=== PATIENT | male | born 1980 | race Two or more races ===

== ENCOUNTER 2020-03-30 15:35 | Outpatient (REF) | payer MEDICAID, SELFPAY ==
--- NOTE | 2020-03-30 15:46 | XR_ITS ---
EXAMINATION: XR FOOT, LEFT CLINICAL INFORMATION: Pain in left foot COMPARISON: None TECHNIQUE: AP, lateral, and oblique views of the left foot. FINDINGS: There is no fracture or dislocation. Alignment is anatomic. Joint spaces are maintained. Achilles heel spur noted. The soft tissues are unremarkable. IMPRESSION: Achilles heel spur. Otherwise unremarkable appearance of the foot.
== END 2020-03-30 15:36 | disposition home or self-care (01) ==
LOC: HO.XRAY 15:35
PROVIDERS: PCP Internal Medicine; Visit Provider Family Medicine
DX: M79.672 Pain in left foot (principal)
CPT/HCPCS: 73630

== ENCOUNTER → 2020-05-11 09:47 | Outpatient (BNVA) | payer MEDICAID, SELFPAY | PROVIDERS: PCP Internal Medicine; Visit Provider Surgery Vascular Surgery | DX: I83.11 Varicose veins of right lower extremity with inflammation (principal) | CPT/HCPCS: 99202 ==

== ENCOUNTER 2020-05-18 10:09 | Outpatient (REF) | payer MEDICAID, SELFPAY ==
--- NOTE | 2020-05-18 10:13 | US_ITS ---
EXAMINATION: RIGHT and LEFT LOWER EXTREMITY VENOUS ULTRASOUND (Reflux Exam) CLINICAL INDICATION: Leg pain and varicose veins. COMPARISON: None. TECHNIQUE: Color flow triplex imaging and compression Doppler was performed to evaluate both the deep and the superficial systems bilaterally. To evaluate the superficial system, the examination was performed in the upright position. Color-flow Doppler ultrasound and compression ultrasound were utilized. In addition, maneuvers were utilized to demonstrate reflux. FINDINGS: 1. DEEP VENOUS ULTRASOUND OF THE RIGHT LOWER EXTREMITY: Respiratory variation, normal compression and augmented flow are noted in the right common femoral vein as well as the right popliteal vein, and there is no evidence of deep venous thrombosis at these locations. There is no evidence of reflux in the deep system in either the common femoral vein. There is deep venous reflux in the mid femoral vein measuring 2.5 seconds and popliteal vein measuring 1 second. There is no evidence of a Martínez's cyst. 2. SUPERFICIAL ULTRASOUND WITH DOPPLER OF RIGHT LOWER EXTREMITY: The right great saphenous vein at the saphenofemoral junction measures 8 mm, at the mid thigh 6 mm, fwwey-[id number] 7 mm, mzoll-vzp-cibj 5 mm, at mid calf 4 mm and at the ankle measures 4 mm. There is no reflux demonstrated in the right great saphenous vein. The right small saphenous vein measures 3-5 mm and shows no reflux. There is a varicose vein in the proximal calf that measures 3 mm and does not demonstrate reflux. 3. DEEP VENOUS ULTRASOUND OF THE LEFT LOWER EXTREMITY: Respiratory variation, normal compression, and augmented flow are noted in the left common femoral vein as well as the left popliteal vein and there is no evidence of deep venous thrombosis at these locations. There is no evidence of reflux in the deep system in either the common femoral vein or the mid femoral vein. There is deep venous reflux in the popliteal vein measuring 1.4 seconds. There is no evidence of a Martínez's cyst. 4. SUPERFICIAL ULTRASOUND WITH DOPPLER OF LEFT LOWER EXTREMITY: Left great saphenous vein at the saphenofemoral junction measures 7 mm, at the mid thigh 3 mm, esjvn-rtv-lnvs 2 mm, vmdti-jko-zhwx 2 mm, at mid calf 2 mm and at the ankle measures 2 mm. There is no reflux demonstrated in the left great saphenous vein. There is an accessory lateral greater saphenous vein that measures 5 mm and does not demonstrate reflux. The left small saphenous vein measures 2-5 mm and shows no reflux. US/US venous duplex LE BI IMPRESSION: 1. No evidence of DVT. Right mid femoral and popliteal vein and left popliteal vein deep venous reflux. 2. The saphenous systems are competent bilaterally.
== END 2020-05-18 10:10 | disposition home or self-care (01) ==
LOC: HO.US 10:09
PROVIDERS: PCP Internal Medicine; Visit Provider Surgery Vascular Surgery
DX: I83.11 Varicose veins of right lower extremity with inflammation (principal)
CPT/HCPCS: 93970

== ENCOUNTER → 2020-06-03 09:44 | Outpatient (BNVA) | payer MEDICAID, SELFPAY | PROVIDERS: PCP Internal Medicine; Visit Provider Surgery Vascular Surgery | DX: M79.605 Pain in left leg (principal) | CPT/HCPCS: 99212 ==

== ENCOUNTER 2021-05-24 13:41 | Outpatient (REF) | payer MEDICAID, SELFPAY ==
[2021-05-24 14:22] LABS: MANUAL DIFF FLAG NO
[2021-05-24 14:31] LABS: Basophils Absolute Auto 0.1 X10*3/uL (0.0-0.2); Basophils Percent Auto 0.9 % (0-2); Eosinophils Absolute Auto 0.1 X10*3/uL (0.0-0.4); Eosinophils Percent Auto 1.7 % (0-4); Hematocrit 43.2 % (42.0-52.0); Hemoglobin 13.7 g/dl (14.0-18.0); Imm Gran Abs Auto 0.02 X10*3/uL (0.00-0.03); Imm Gran Pct Auto 0.3 % (0.0-0.4); Lymphocytes Absolute Auto 2.2 X10*3/uL (1.2-4.9); Lymphocytes Percent Auto 37.6 % (20-40); Mean Corpuscular HGB Conc 31.7 g/dl (31.0-36.0); Mean Corpuscular Hemoglobin 29.6 pg (27.0-33.0); Mean Corpuscular Volume 93.3 fL (80.0-98.0); Monocytes Absolute Auto 0.6 X10*3/uL (0.1-1.2); Monocytes Percent Auto 10.7 % (2-11); Neutrophils Absolute Auto 2.9 x10*3/uL (2.0-8.3); Neutrophils Percent Auto 48.8 % (45-73); Platelet Count 379 X10*3/uL (160-400); Red Blood Count 4.63 X10*6/uL (4.60-5.80); Red Cell Distribution Width 13.2 % (11.0-16.0); White Blood Count 5.9 X10*3/uL (4.8-10.8)
== END 2021-05-24 13:42 | disposition home or self-care (01) ==
LOC: HO.LAB 13:41
PROVIDERS: PCP Internal Medicine; Visit Provider Internal Medicine Pulmonary Disease
DX: J45.40 Moderate persistent asthma, uncomplicated (principal); G47.33 Obstructive sleep apnea (adult) (pediatric); Z79.899 Other long term (current) drug therapy; Z91.09 Other allergy status, other than to drugs and biological substances; Z01.82 Encounter for allergy testing
CPT/HCPCS: 36415; 82785; 85025; 86003; 99202

== ENCOUNTER 2021-06-16 09:59 | Outpatient (REF) | payer MEDICAID, SELFPAY ==
--- NOTE | 2021-06-16 17:17 | PFT_ITS ---
Forced vital capacity is slightly decreased. FEV1, QCE46-99, and MVV are moderately decreased. Postbronchodilator therapy, there is significant improvement in all flow volumes. Total lung capacity, normal. Residual volume is also normal. Diffusion capacity, normal. CONCLUSION: Moderately severe obstructive airway disorder. Good response to bronchodilator therapy. These findings are consistent with asthma/COPD overlap syndrome. Clinical correlation is recommended. MD KAITLIN Lopez/HARDY / [id number]
== END 2021-06-16 10:00 | disposition home or self-care (01) ==
LOC: HO.RESP 09:59
PROVIDERS: PCP Internal Medicine; Visit Provider Internal Medicine Pulmonary Disease
DX: J45.909 Unspecified asthma, uncomplicated (principal)
CPT/HCPCS: 94060; 94727; 94729

== ENCOUNTER → 2021-06-30 08:47 | Outpatient (REF) | payer MEDICAID, SELFPAY | LOC: HO.SL 08:47 | PROVIDERS: PCP Internal Medicine; Visit Provider Internal Medicine Pulmonary Disease | DX: G47.33 Obstructive sleep apnea (adult) (pediatric) (principal) | CPT/HCPCS: 95806 ==

== ENCOUNTER → 2021-07-14 10:50 | Outpatient (BNVA) | payer MEDICAID, SELFPAY | PROVIDERS: PCP Internal Medicine; Visit Provider Internal Medicine Pulmonary Disease | DX: J45.909 Unspecified asthma, uncomplicated (principal); G47.33 Obstructive sleep apnea (adult) (pediatric); Z79.899 Other long term (current) drug therapy; Z91.09 Other allergy status, other than to drugs and biological substances | CPT/HCPCS: 99212 ==

== ENCOUNTER → 2021-08-24 10:52 | Outpatient (BNVA) | payer MEDICAID, SELFPAY | PROVIDERS: PCP Internal Medicine; Visit Provider Internal Medicine Pulmonary Disease | DX: Z13.89 Encounter for screening for other disorder (principal) ==

== ENCOUNTER → 2021-09-07 10:26 | Outpatient (BNVA) | payer MEDICAID, SELFPAY | PROVIDERS: PCP Internal Medicine; Visit Provider Internal Medicine Pulmonary Disease | DX: J45.909 Unspecified asthma, uncomplicated (principal); G47.33 Obstructive sleep apnea (adult) (pediatric); Z91.09 Other allergy status, other than to drugs and biological substances | CPT/HCPCS: 99212 ==

== ENCOUNTER → 2022-02-09 14:27 | Outpatient (BNVA) | payer MEDICAID, SELFPAY | PROVIDERS: PCP Internal Medicine; Referring Provider Internal Medicine; Visit Provider Internal Medicine | DX: R06.02 Shortness of breath (principal); Z86.711 Personal history of pulmonary embolism | CPT/HCPCS: 93005; 99202 ==

== ENCOUNTER → 2022-02-16 14:49 | Outpatient (REF) | payer MEDICAID, SELFPAY ==
--- NOTE | 2022-02-16 14:54 | CA_ITS ---
Transthoracic Echocardiogram Patient (Last, First, Middle): Juan Schmidt R Gender: Male Date of : 1980 Age: 41 Procedure Date: 02/16/2022 Procedure Type: Transthoracic Echocardiogram Location: OP Height: 177.8 cm Weight: 122.47 kg BSA: 2.37 m2 Heart Rate: bpm BP: 124 / 82 mmHg Licensed Surveyor: ANIKET Referring MD: Aren Ahmadi MD Scientist Engineer: Vinnie Singh MD Symptoms: R06.02 - Shortness of breath Study Quality: Adequate ECG Rhythm: Sinus Conclusions: - Normal study Findings Left Ventricle Normal left ventricular size, thickness, and systolic function. The visually estimated ejection fraction is between 60-65%. Spectral Doppler is indicative of a normal filling pattern. Right Ventricle Normal right ventricular cavity size and systolic function. Atria The left atrium is normal in size. Interatrial shunt cannot be excluded. The right atrium is normal in size. Aortic Valve The aortic valve structure and function is likely normal. There is no aortic valve stenosis. There is no aortic valve regurgitation. Mitral Valve Likely normal mitral valve structure and function. There is trace mitral valve regurgitation. There is no mitral valve stenosis. Pulmonic Valve The pulmonic valve was not well visualized. Tricuspid Valve Likely normal tricuspid valve structure and function. There is trace tricuspid valve regurgitation. The right ventricular systolic pressure is normal. The right ventricular systolic pressure is 25 mmHg. Normal right atrial pressure. There is no evidence of pulmonary hypertension. Great Vessels All visible segments of the aorta are normal in size. The pulmonary artery was not well visualized. Venous The inferior vena cava is normal in size and collapses greater than 50% with inspiration. Pericardium/Pleural There is no evidence of pericardial effusion. Prior Study Comparison No prior study available for comparison. Measurements 2D Linear Measurements IVSd: 1.07 0.6-0.9/0.6-1.0 cm LVIDd: 5.34 3.9-5.3/4.2-5.9 cm LVIDd Index: 2.25 2.4-3.2/2.2-3.1 cm/m2 LVIDs: 3.52 2.0-3.6 cm LVPWd: 0.98 0.7-1.1 cm LA Diam: 3.70 2.7-3.8/3.0-4.0 cm LAIDs Index: 1.56 1.5-2.3 cm/m2 LV Mass: 262.04 67-162/88-224 g LV Mass Index: 110.57 43-95/49-115 g/m2 LVOT Diam: 2.10 3.0+(-)1.3 cm 2D Systolic Function EF 4C: 64.10 >55% EF 2C: 60.20 >55% EF BiP: 62.40 >55% Mitral Valve MV Pk E: 0.91 MV PK A: 0.62 MV Decel Time: 234.00 E/A: 1.50 E'Lateral: 14.50 E'Medial: 9.57 E/E' Med: 9.50 E/E' Lat: 6.30 PHT: 69.00 MVA PHT: 3.19 Decel [place]: 3.88 Aortic Valve AoV Pk Guillaume: 1.52 AoV Mn Guillaume: 1.01 AoV VTI: 0.29 AoV Pk Grad: 9.00 Aov Mn Grad: 5.00 SHANNAN Cont.VTI: 2.96 LVOT LVOT Pk Guillaume: 1.24 LVOT Mn Guillaume: 0.82 LVOT VTI: 0.25 LVOT Pk Grad: 6.00 LVOT Mn Grad: 3.00 LVOT Diam: 2.10 LVOT Area: 3.46 Diastolic Function MV Pk E: 0.91 MV Pk A: 0.62 E/A: 1.50 E'Medial: 9.57 E/E' Med: 9.50 E' Laterial: 14.50 E/E' Lat: 6.30 Right Ventricle TAPSE (mm): 24.20 TVS' Guillaume: 15.90 Tricuspid Valve TR Pk Guillaume: 2.33 TR Pk Grad: 22.00 RA Press: 3.00 RVSP: 25.00 Great Vessels Aorta Sinus of Valsalva: 3.52 2.0-3.[address] [place]: 2.45 1.7-3.4 cm Ao Asc: 3.10 2.1-3.4 cm Updated in Other Vendor System with Status of Final Vinnie Singh MD electronically signed on 02/16/2022 4:17:03 PM with status of Final
== END ==
LOC: HO.CARD 14:49
PROVIDERS: PCP Internal Medicine; Visit Provider Internal Medicine
DX: R06.02 Shortness of breath (principal)
CPT/HCPCS: 93306

== ENCOUNTER 2022-05-17 13:29 | Outpatient (REF) | payer MEDICAID, SELFPAY ==
--- NOTE | ~2022-05-17 | US_ITS ---
EXAMINATION: US VENOUS ULTRASOUND WITH DOPPLER LOWER EXTREMITY, RIGHT CLINICAL INFORMATION: Right leg pain and swelling. Patient on Eliquis. COMPARISON: Venous ultrasound exams from 12/10/2019 and 05/18/2020. TECHNIQUE: Ultrasound of the deep veins is performed from the hip to the calf with compression sonography and color and pulse Doppler assessment. Spectral analysis with color-flow imaging is performed. FINDINGS: The common femoral vein is compressible and exhibits a normal phasic waveform; this suggests that the iliac veins are widely patent above. Within the proximal thigh, the visualized profunda femoris vein is normal. The examined greater saphenous vein and saphenofemoral junction are normal. Superficial femoral vein is patent in the proximal thigh. Based on comparison with 12/10/2019, there appears to be chronic wall thickening and chronic recanalization of old thrombus of the femoral vein of the mid to lower thigh. Against the background of chronic changes, there is no convincing acute venous thrombosis. The popliteal vein is normal to the level of the trifurcation. On compression jaramillo scale and color Doppler images, the visualized deep calf veins are grossly patent. No evidence of Martínez's cyst. US/US venous duplex LE RT IMPRESSION: * No evidence of acute deep vein thrombosis in the right lower extremity. * As detected and described on 12/10/2019, there appears to be chronic recanalization of old thrombus of the right mid to lower femoral vein.
== END 2022-05-17 13:30 | disposition home or self-care (01) ==
LOC: HO.US 13:29
PROVIDERS: PCP Internal Medicine; Visit Provider Family Medicine
DX: R60.0 Localized edema (principal); M79.604 Pain in right leg; Z86.718 Personal history of other venous thrombosis and embolism
CPT/HCPCS: 93971

== ENCOUNTER → 2022-05-30 14:31 | Outpatient (BNVA) | payer MEDICAID, SELFPAY | PROVIDERS: PCP Internal Medicine; Referring Provider Internal Medicine; Visit Provider Nurse Practitioner Family | DX: R06.02 Shortness of breath (principal); G47.33 Obstructive sleep apnea (adult) (pediatric) | CPT/HCPCS: 99212 ==

== ENCOUNTER 2022-11-21 12:20 | Outpatient (REF) | payer MEDICAID, SELFPAY ==
--- NOTE | ~2022-11-21 | XR_ITS ---
EXAMINATION: XR ABDOMEN KUB CLINICAL INDICATION: Hematuria for 2 days COMPARISON: No similar prior examinations are available for comparison. TECHNIQUE: Single view, two film KUB of the abdomen was obtained. Overlying stool limits sensitivity for small renal calculi. FINDINGS: No focal densities are appreciated overlying the renal shadows or expected course of the ureters. Tiny pelvic calcification is likely vascular in nature. Nonobstructive bowel gas pattern. No acute osseous abnormality. XR/XR KUB IMPRESSION: No radiographic evidence of renal calculi overlying the renal shadows or expected course of the ureters.
== END 2022-11-21 12:21 | disposition home or self-care (01) ==
LOC: HO.HHCX 12:20
PROVIDERS: Visit Provider Student in an Organized Health Care Education/Training Program
DX: R31.9 Hematuria, unspecified (principal)
CPT/HCPCS: 74018

== ENCOUNTER 2023-01-08 14:45 | Outpatient (AMB) | payer MEDICAID, SELFPAY ==
[2023-01-08 14:50] VITALS: BP 124/70; PULSE 88; O2SAT 96; BMI 39.7
--- NOTE | 2023-01-08 14:50 | MHC.OFFVIS ---
Intake Vital Signs 01/08/23 14:50 Height 5 ft 10 in Weight 277 lb BMI 39.7 BP 124/70 Blood Pressure Location Rt brachial Position Sitting Pulse 88 Pulse Source Pulse Oximeter Pulse Oximetry (%) 96 Oxygen Delivery Method Room Air Intake Visit Reasons: E-PROVIDER SCRIBE: MEEK - Confirmed Intake Note: Pt presents as a NPV for MEEK. [employer] Equipment Operator Required: No Allergies No Known Allergies [No Known Allergies*] Allergy (Verified 01/08/23 14:58) HPI HPI Comments History of Present Illness Details 42 y/o male patient with hx of HTN, DVT and severe degree of sleep apnea presents for new in-person visit to manage MEEK. Pt reports that he was diagnosed with severe degree of MEEK about two years ago and started using CPAP. However, he lost his CPAP mask while he moves and could not use it . He used CPAP on and off, it was hard to use it. His home care company is [employer]. He is not sure what the CPAP setting is.. Pt reports snoring, and witnessed apena spells. He has non refreshing sleep and daytime sleepiness. Sleep questionnaire: Have you ever been diagnosed with a sleep disorder? Yes, severe degree of MEEK. Have you ever had a sleep study in the past? Yes. about two years ago. Have you ever been treated for a sleep disorder? Yes, CPAP. Do you take medications for a sleep disorder? No. Do you snore? No. Do you wake up gasping at night? Yes. Do you have episodes of apneas? Yes. If yes, are they witnessed? His sleep partner. Do you have episodes of nocturnal chest pain or dyspnea? Yes. Do you have difficulty initiating sleep? No. Do you have difficulty maintaining sleep? Yes, wakes up a lot. Do you wake up tired? Yes. Do you have headaches upon awakening? Yes. Do you wake up with dry mouth or throat? Yes. Do you have GERD? No. Do you have nocturia? Yes. Do you have nocturnal leg cramps? Yes. Do you have symptoms of restless legs? Yes. Do you act out your dreams? No. Sleep hygiene questionnaire: What is your usual sleep routine? Usual bedtime is at 8-9 pm; Usual wake up time is at 5:30 am. Do you take naps? No. Is your sleep environment cool, dark, and quiet? Yes. Do you exercise? No. Do you take caffeine or other stimulants? One cup of coffee in the morning, Do you use electronics in bed? No. What is your work schedule? 7 am to 3:30 pm Hypersomnolence questionnaire: Do you have daytime tiredness or fatigue? Yes. Do you easily fall asleep when inactive? Yes. Have you ever had episodes of sudden weakness? No. Have you ever had episodes of sudden weakness associated with strong emotions? No. PFSH Medical History Moderate asthma Seasonal allergies Venous insufficiency Surgical History No history of previous surgery Family History Brother Pulmonary embolism Mother Asthma Hypertension Cancer Social History Household Members: Spouse and Children Housing: House Are you a primary hospice spiritual care coordinator to a significant other at home: No Do you presently have visiting nurse or other home services: No Alcohol intake: current Alcohol intake frequency: does not drink Patient Tobacco Use Status: Never used Tobacco Use of substances other than those prescribed or required for medical reasons: No service: No Current occupational status: unemployed Review of Systems Const All systems reviewed & are unremarkable except as noted in HPI and below ENT Reports Normal hearing present Neuro Reports Normal hearing present Physical Exam Vital Signs: Last Vital Signs Pulse 88 01/08/23 14:50 BP 124/70 01/08/23 14:50 Pulse Ox 96 01/08/23 14:50 Oxygen Delivery Method Room Air 01/08/23 14:50 BMI result Body Mass Index 39.7 Const General: cooperative and tired appearing Nutritional Appearance: obese Orientation/consciousness: patient oriented x3 HEENT Throat: Yes other (mallampati grade 4) Neck Neck: Yes full ROM and Yes supple Resp Effort & Inspection: normal respiratory effort and able to speak in complete sentences Neuro General: patient oriented x3, gait normal and moves all extremities Cranial nerves: Yes Bilaterally intact EOM present, Yes Normal facial strength present, Yes Midline tongue present, Yes Symmetric palate elevation present, Yes Normal hearing present, Yes Ability to bilaterally rotate head present and Yes Ability to bilaterally elevate shoulders present Cognition (Neuro): normal cognition Gait exam (Neuro): Normal gait present Motor exam (neuro): 5/5 motor strength present throughout, Pronator motor function not present and no tremor noted Psych Appearance: grossly normal Mental Status: mental status grossly normal Speech and movement: Normal speech and movement present Affect: normal affect Attitude: cooperative Assessment & Plan Assessment & Plan (1) MEEK (obstructive sleep apnea): Code(s): G47.33 - Obstructive sleep apnea (adult) (pediatric) Plan Supply order sent to [facility]. Advised patient to undergo in-lab sleep study to assess sleep apnea. Will f/u with patient after sleep study to discuss result and and appropriate treatment options. Stressed CPAP compliance, use CPAP nightly and more than 4 hours. Orders: Orders RT PSG in-lab sleep study Today E66.9 - Obesity, unspecified, G47.33 - Obstructive sleep apnea (adult) (pediatric), I10 - Essential (primary) hypertension, I82.409 - Acute embolism and thrombosis of unspecified deep veins of unspecified lower extremity, J45.909 - Unspecified asthma, uncomplicated, R06.02 - Shortness of breath Coding Level of Care Code New Pt Level 3 (67972) Diagnoses MEEK (obstructive sleep apnea) G47.33
== END 2023-01-08 15:38 | disposition home or self-care (01) ==
PROVIDERS: Visit Provider Nurse Practitioner Family
DX: G47.33 Obstructive sleep apnea (adult) (pediatric) (principal)
CPT/HCPCS: 99203

== ENCOUNTER → 2023-01-08 14:45 | Outpatient (BNVA) | payer MEDICAID, SELFPAY | PROVIDERS: Visit Provider Nurse Practitioner Family | DX: G47.33 Obstructive sleep apnea (adult) (pediatric) (principal) | CPT/HCPCS: 99203 ==

== ENCOUNTER → 2023-01-18 20:30 | Outpatient (REF) | payer MEDICAID, SELFPAY | LOC: HO.SL 20:30 | PROVIDERS: PCP Internal Medicine; Visit Provider Nurse Practitioner Family | DX: G47.33 Obstructive sleep apnea (adult) (pediatric) (principal) | CPT/HCPCS: 95810 ==

== ENCOUNTER → 2023-01-18 21:06 | Outpatient (BNV) | payer MEDICAID, SELFPAY | PROVIDERS: PCP Internal Medicine; Visit Provider Psychiatry & Neurology Neurology | DX: G47.33 Obstructive sleep apnea (adult) (pediatric) (principal); G47.61 Periodic limb movement disorder | CPT/HCPCS: 95810 ==

== ENCOUNTER 2023-05-08 13:44 | Outpatient (AMB) | payer MEDICAID, SELFPAY ==
--- NOTE | 2023-05-08 13:50 | A.OFFVIS_ITS ---
Intake Vital Signs 05/08/23 13:51 Height 5 ft 10 in Weight 277 lb 6 oz BMI 39.8 BP 124/70 Blood Pressure Location Lt brachial Position Sitting Pulse 86 Pulse Source Pulse Oximeter Pulse Oximetry (%) 96 Oxygen Delivery Method Room Air Intake Visit Reasons: 4m: MEEK/Confirmed Intake Note: Pt presents to the office today for a 4 month follow up for MEEK. Allergies No Known Allergies [No Known Allergies*] Allergy (Verified 05/08/23 13:51) HPI HPI Comments History of Present Illness Details 43 y/o male patient presents for follow up of sleep study. Pt underwent split night sleep study. The baseline portion of the study was significant for severe degree of sleep apnea. The AHI was 11/hr, REM AHI was 98/hr, oxygen amish was 74%. And his breathing and oxygenation was stablized with CPAP at [id number]. Pt started CPAP at [id number]. He sleeps better, don't get up to go to bathroom in the middle of night. He feels more rested, daytime sleepiness has improved when he uses CPAP. The CPAP compliance is not available at this time. [employer], his home care company tried to reach him, but he hung up and [employer] could not get his compliance. [facility] Medical History Venous insufficiency Moderate asthma Seasonal allergies Surgical History No history of previous surgery Family History Brother Pulmonary embolism Mother Asthma Hypertension Cancer Social History Household Members: Spouse and Children Housing: House Are you a primary critical care clinical nurse specialist to a significant other at home: No Do you presently have visiting nurse or other home services: No Alcohol intake: current Alcohol intake frequency: does not drink Patient Tobacco Use Status: Never used Tobacco service: No Current occupational status: unemployed Review of Systems Const All systems reviewed & are unremarkable except as noted in HPI and below ENT Reports Normal hearing present Neuro Reports Normal hearing present Physical Exam Vital Signs: Last Vital Signs Pulse 86 05/08/23 13:51 BP 124/70 05/08/23 13:51 Pulse Ox 96 05/08/23 13:51 Oxygen Delivery Method Room Air 05/08/23 13:51 BMI result Body Mass Index 39.8 Const General: cooperative Nutritional Appearance: obese Orientation/consciousness: patient oriented x3 HEENT Throat: Yes other (mallampati grade 4) Neck Neck: Yes full ROM and Yes supple Resp Effort & Inspection: normal respiratory effort and able to speak in complete sentences Neuro General: patient oriented x3, gait normal and moves all extremities Cranial nerves: Yes Bilaterally intact EOM present, Yes Normal facial strength present, Yes Midline tongue present, Yes Symmetric palate elevation present, Yes Normal hearing present, Yes Ability to bilaterally rotate head present and Yes Ability to bilaterally elevate shoulders present Cognition (Neuro): normal cognition Gait exam (Neuro): Normal gait present Motor exam (neuro): 5/5 motor strength present throughout, Pronator motor function not present and no tremor noted Psych Appearance: grossly normal Mental Status: mental status grossly normal Speech and movement: Normal speech and movement present Affect: normal affect Attitude: cooperative Assessment & Plan Assessment & Plan (1) MEEK (obstructive sleep apnea): Comment: Severe degree of sleep apnea. The AHI was 11/hr, REM AHI was 98/hr, and oxygen amish was 74% Code(s): G47.33 - Obstructive sleep apnea (adult) (pediatric) Plan Continue to use CPAP at [id number] as patient experiences good clinical effects, rested sleep and daytime tiredness has improved. Stressed compliance, use CPAP nightly and more than 4 hrs. Wt reduction advised. Advised patient to call [employer] to connect his CPAP account and get compliance. Coding Level of Care Code Est Pt Level 3 (72038) Diagnoses MEEK (obstructive sleep apnea) G47.33
[2023-05-08 13:51] VITALS: BP 124/70; PULSE 86; O2SAT 96; BMI 39.8
== END 2023-05-08 14:42 | disposition home or self-care (01) ==
PROVIDERS: PCP Internal Medicine; Visit Provider Nurse Practitioner Family
DX: G47.33 Obstructive sleep apnea (adult) (pediatric) (principal)
CPT/HCPCS: 99213

== ENCOUNTER → 2023-05-08 13:44 | Outpatient (BNVA) | payer MEDICAID, SELFPAY | PROVIDERS: PCP Internal Medicine; Visit Provider Nurse Practitioner Family | DX: G47.33 Obstructive sleep apnea (adult) (pediatric) (principal) | CPT/HCPCS: 99212 ==

== ENCOUNTER 2023-07-17 13:22 | Outpatient (REF) | payer MEDICAID, SELFPAY ==
[2023-07-17 16:53] LABS: Anion Gap 12 (12-20); Blood Urea Nitrogen 10 mg/dL (9-16); Calcium 9.8 mg/dL (8.4-10.2); Carbon Dioxide 30 mmol/L (22-29); Chloride 104 mmol/L (96-108); Cholesterol 230 mg/dL (<200); Estimated Glomerular Filt Rate > 60; Glucose Random 195 mg/dL (60-115); HDL Cholesterol 37 mg/dL (>40); LDL Cholesterol Calculated 136 mg/dL (<100); Potassium 4.2 mmol/L (3.3-5.1); Sodium 142 mmol/L (135-145); Triglycerides 287 mg/dL (<150)
== END 2023-07-17 13:23 | disposition home or self-care (01) ==
LOC: HO.HHCL 13:22
PROVIDERS: Visit Provider Internal Medicine
DX: I10 Essential (primary) hypertension (principal)
CPT/HCPCS: 36415; 80048; 80061

== ENCOUNTER 2023-12-16 22:26 | Emergency (ER) | payer OTHER, MEDICAID, SELFPAY ==
--- NOTE | ~2023-12-16 | XR_ITS ---
EXAMINATION: RIGHT ANKLE, RIGHT FOOT CLINICAL INFORMATION: Right ankle and foot injury COMPARISON: None available. TECHNIQUE: 2 views right ankle, 3 views right foot FINDINGS: Soft tissue swelling is present bilaterally, more marked medially. The ankle mortise appears stable. There is an avulsion fracture of the posterior talar process associated with the posterior talofibular ligament. No other fractures are seen. XR/XR ankle RT min 3V IMPRESSION: Avulsion fracture posterior talar process.
--- NOTE | ~2023-12-16 | XR_ITS ---
EXAMINATION: RIGHT ANKLE, RIGHT FOOT CLINICAL INFORMATION: Right ankle and foot injury COMPARISON: None available. TECHNIQUE: 2 views right ankle, 3 views right foot FINDINGS: Soft tissue swelling is present bilaterally, more marked medially. The ankle mortise appears stable. There is an avulsion fracture of the posterior talar process associated with the posterior talofibular ligament. No other fractures are seen. XR/XR foot RT min 3V IMPRESSION: Avulsion fracture posterior talar process.
[2023-12-16 22:27] VITALS: BP 139/82; PULSE 90; RESP 18; TEMP 36.2; O2SAT 96; BMI 38.0
--- NOTE | 2023-12-16 22:42 | ED.GENADULT ---
HPI - General Adult General Chief complaint: Extremity Injury, Lower Stated complaint: twisted ankle Time Seen by Provider: 12/16/23 22:42 Source: patient Mode of arrival: wheelchair Limitations: no limitations History of Present Illness ED Provider: Sujata Washington PA-C HPI narrative: Patient is a 43 year old assigned male at with a history of asthma and HTN presenting to the emergency department today with right ankle pain. Patient states that he was going down the stairs when he missed a step and twisted his right ankle. Patient denies any dizziness, lightheadedness, abdominal pain, nausea, vomiting, fever, chills, blurry vision, double vision, loss of vision, chest pain, difficulty breathing, shortness of breath, back pain, night sweats, pain with urination, increased urinary frequency, increased urinary urgency, blood in his urine or stool, syncope or a near syncopal episode, bowel incontinence, bladder incontinence, or any other complaints at this time. Onset (ago): hour(s) Location: left and lower extremity Radiation: non-radiation Severity: moderate Severity scale (1-10): 5 Quality: aching and dull Pain Consistency: constant Relieving factors: immobilization Exacerbating factors: movement Associated symptoms: denies other symptoms Treatments prior to arrival: none Related Data Home Medications ?Medication ?Instructions ?Recorded ?Confirmed acetaminophen 500 mg tablet 2 tab PO Q8H PRN pain 03/02/21 05/30/22 albuterol sulfate 2.5 mg/3 mL 1 amp inhalation TID 03/02/21 05/30/22 (0.083 %) solution for nebulization albuterol sulfate 90 mcg/actuation 2 puff PO Q4-6H PRN Wheezing 03/02/21 05/30/22 aerosol inhaler (ProAir HFA) fluticasone propionate 110 2 puff PO BID 03/02/21 05/30/22 mcg/actuation HFA aerosol inhaler (Flovent HFA) apixaban 5 mg tablet (Eliquis) 5 mg PO BID 02/09/22 05/30/22 loratadine 10 mg tablet 10 mg PO DAILY PRN allergies 05/30/22 05/30/22 amlodipine 10 mg tablet 10 mg PO QAM 01/08/23 Allergies Allergy/AdvReac Type Severity Reaction Status Date / Time No Known Allergies Allergy Verified 12/16/23 22:29 [No Known Allergies*] Review of Systems Constitutional: Constitutional: Reports no additional constitutional complaints, Denies chills, Denies fever(s) and Denies night sweats Eyes: Eyes: Reports no additional eye complaints, Denies blurry vision, Denies change in vision, Denies diplopia, Denies eye discharge, Denies loss of vision and Denies eye pain ENT: Denies dizziness Cardiovascular: Cardiovascular: Reports no additional cardiovascular complaints, Denies chest pain, Denies lightheadedness, Denies Loss of Consciousness and Denies dyspnea Respiratory: Respiratory: Reports no additional respiratory complaints and Denies dyspnea Gastrointestinal: Gastrointestinal: Reports no additional gastrointestinal complaints, Denies abdominal pain, Denies melena, Denies hematochezia, Denies change in bowel habits and Denies change in stool character Genitourinary: Genitourinary: Reports no additional male genitourinary complaints, Denies hematuria, Denies oliguria, Denies difficulty urinating, Denies dysuria, Denies urinary frequency, Denies urinary hesitancy, Denies urinary incontinence and Denies urinary urgency Musculoskeletal: Musculoskeletal: Reports no additional musculoskeletal complaints, Denies numbness and Denies tingling Comments: right ankle pain Neurologic: Denies dizziness, Denies loss of vision, Denies numbness and Denies tingling Psychiatric: Psychiatric: Reports no additional psychiatric complaints Endocrine: Endocrine: Reports no additional endocrine complaints Hematologic/Lymphatic: Hematologic/Lymphatic: Reports no additional hematologic/lymphatic complaints Allergic/Immunologic: Allergic/Immunologic: Reports no additional allergic/immunologic complaints [facility] Past Medical History Attestation statement: The following information was validated with the patient. Source: old records reviewed and nursing notes reviewed Medical History Venous insufficiency Moderate asthma Seasonal allergies Surgical History No history of previous surgery Family History Family History Brother Pulmonary embolism Mother Asthma Hypertension Cancer Social History Social History Household Members: Spouse and Children Housing: House Are you a primary career development specialist to a significant other at home: No Do you presently have visiting nurse or other home services: No Alcohol intake: current Alcohol intake frequency: does not drink Patient Tobacco Use Status: Never used Tobacco Advance Directives: No Advance Directives Information Provided: No Do you have a plan to hurt others: No Plan service: No Current occupational status: unemployed Physical Exam ED Vital Signs: Vital Signs - 24 hr 12/16/23 22:27 Temperature 97.2 F Pulse Rate 90 Respiratory Rate 18 Blood Pressure 139/82 Pulse Oximetry 96 Oxygen Delivery Method Room Air BMI result Body Mass Index 38.0 Const General: cooperative, no acute distress, alert and awake Nutritional Appearance: well nourished Orientation/consciousness: patient oriented x3 Limitations: no limitations HENMT Head: Yes normal to inspection and Yes atraumatic Ears: hearing grossly normal bilaterally and external ears normal General nose exam: Normal external nose present, no nasal discharge noted and no epistaxis Face and sinus: Yes normal facial exam, No abrasion and No laceration Mouth: Normal oral and palatal mucosa present, no drooling and no muffled voice Eyes General: appearance normal, both eyes and all related structures Periorbital: periorbital findings normal Eyelids: Yes eyelids normal Conjunctivae: conjunctivae normal Pupils: Equal, round and reactive pupils present EOM: EOMs intact bilaterally Neck Neck: Yes normal visual inspection, Yes full ROM and Yes no lymphadenopathy Chest Chest palpation & inspection: normal inspection of the chest Resp Effort & Inspection: normal respiratory effort and able to speak in complete sentences GI Inspection: Yes normal to inspection Neuro General: patient oriented x3 and moves all extremities Cranial nerves: Yes Equal, round and reactive pupils present Cognition (Neuro): normal cognition Extrem Other: swelling present to the right ankle with painful ROM General: Yes full ROM and Yes capillary refill normal Psych Appearance: grossly normal Mental Status: mental status grossly normal Affect: normal affect Attitude: cooperative Thought process: Normal thought process present Thought content: Normal thought content present Insight: Good insight present (Psych) Procedures Orthopedic Splinting/Casting Injury #1: Side: right Lower Extremity Injury Location: ankle Lower Extremity Immobilizer: posterior splint and stirrup splint Other Orthopedic Equipment: crutches Medical Decision Making Medical Decision Making MDM Narrative: Patient is a 43 year old assigned male at with a history of HTN, asthma, and MEEK presenting to the emergency department today with right ankle pain. Patient's physical exam was as noted in the physical exam portion of this note. Patient's right ankle and foot x-rays showed a posterior talus avulsion fracture. I spoke to the orthopedic team who recommended a posterior short leg with stirrups splint and crutches. I explained my physical exam findings as well as all test results to the patient. I answered all questions asked by the patient. Patient's right foot/ankle was placed in a posterior short leg with stirrups splint, without incident. Patient's PMS was intact prior to and after splint placement. I stressed the importance of the patient taking his medication as directed (either prescribed or as the over the counter packaging recommends). I stressed the importance of the patient following up with his primary care provider and an orthopedic provider. I stressed the importance of the patient returning to the emergency department immediately if his symptoms were to worsen or if he were to develop any dizziness, shortness of breath, difficulty breathing, chest pain, blurry vision, loss of vision, nausea, vomiting, abdominal pain, fever, chills, back pain, or any other complaints. Patient verbalized agreement and understanding with this treatment plan and discharge. Differential Diagnosis Differential Diagnoses: The differential diagnosis associated with the presentation includes Ankle fracture Foot fracture Ankle sprain Ankle strain Foot sprain Foot strain Admission/Observation Consideration of admission/observation: Escalation of care including admission/observation considered Patient would have been admitted to the hospital had his work up had any findings where hospital admission was appropriate and his clinical presentation warranted hospital admission. Consult Healthcare Provider Management of the patient was discussed with: Pan Greaser (spoke to the orthopedic team as noted in the MDM Rationale portion of this note.) Independent Interpretation I performed an independent interpretation of an: Plain X-Ray Interpretation: My interpretation is in agreement with the radiologist's impression of these imaging studies. EXAMINATION: RIGHT ANKLE, RIGHT FOOT CLINICAL INFORMATION: Right ankle and foot injury COMPARISON: None available. TECHNIQUE: 2 views right ankle, 3 views right foot FINDINGS: Soft tissue swelling is present bilaterally, more marked medially. The ankle mortise appears stable. There is an avulsion fracture of the posterior talar process associated with the posterior talofibular ligament. No other fractures are seen. XR/XR foot RT min 3V IMPRESSION: Avulsion fracture posterior talar process. Dictated By: Eleazar Shane MD Signed By: Electronically signed by Eleazar Shane MD 12/16/23 [id number] Radiology Impression Discussion of test interpretation with radiology: I have reviewed the radiologist's reading. Discharge Plan Discharge Clinical Impression: Avulsion fracture of talus Patient Disposition: Home, Self-Care Instructions: Ankle Fracture (DC), Crutch Instructions (ED), Avulsion Fracture (ED) Additional Instructions: Do NOT put any weight on your right lower extremity. Elevate with at least 2 pillows whenever you are not stationary. If your toes start to tingle or change temperature, immediately loosen the MICHELE wrap. If you find yourself loosening the MICHELE wrap to the point of seeing the splint material - STOP and return to the ER immediately. Follow up with your primary care provider and an orthopedic provider. Return to the emergency department immediately if your symptoms worsen or if you develop any dizziness, shortness of breath, difficulty breathing, chest pain, blurry vision, loss of vision, nausea, vomiting, abdominal pain, fever, chills, back pain, or any other complaints. Prescriptions: No Action albuterol sulfate 2.5 mg /3 mL (0.083 %) solution for nebulization 1 amp inhalation TID acetaminophen 500 mg tablet 2 tab PO Q8H PRN (Reason: pain) albuterol sulfate [ProAir HFA] 90 mcg/actuation HFA aerosol inhaler 2 puff PO Q4-6H PRN (Reason: Wheezing) Flovent HFA 110 mcg/actuation HFA aerosol inhaler 2 puff PO BID Eliquis 5 mg tablet 5 mg PO BID loratadine 10 mg tablet 10 mg PO DAILY PRN (Reason: allergies) amlodipine 10 mg tablet 10 mg PO QAM [place] [facility] [place] [facility] [Provider Group] (Call to establish and follow up with an orthopedic provider. ) Hemalatha Lyons MD [Primary Care Provider] - Stand Alone Forms: Work/School Release Print Language: Slovak
[2023-12-17 00:21] VITALS: BP 139/82; PULSE 90; RESP 18; TEMP 36.2; O2SAT 96
== END 2023-12-17 00:22 | disposition home or self-care (01) ==
PROVIDERS: Emergency Provider Emergency Medicine Emergency Medical Services; PCP Internal Medicine
DX: S92.131A Displaced fracture of posterior process of right talus, initial encounter for closed fracture (principal); X50.1XXA Overexertion from prolonged static or awkward postures, initial encounter; Y93.89 Activity, other specified; Y92.9 Unspecified place or not applicable; Y99.9 Unspecified external cause status; M25.571 Pain in right ankle and joints of right foot; I10 Essential (primary) hypertension; J45.909 Unspecified asthma, uncomplicated
CPT/HCPCS: 29515; 73610; 73630; 99282; 99283

== ENCOUNTER 2023-12-28 08:14 | Outpatient (AMB) | payer MEDICAID, SELFPAY ==
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
[2023-12-28 08:29] VITALS: BMI 38.7
== END 2023-12-28 08:56 | disposition home or self-care (01) ==
PROVIDERS: PCP Internal Medicine; Visit Provider Physician Assistant
DX: S93.401A Sprain of unspecified ligament of right ankle, initial encounter (principal)
CPT/HCPCS: 99204

== ENCOUNTER 2023-12-28 08:32 | Outpatient (REF) | payer OTHER, MEDICAID, SELFPAY ==
--- NOTE | ~2023-12-28 | XR_ITS ---
EXAMINATION: XR FOOT, RIGHT CLINICAL INFORMATION: Pain in the foot. COMPARISON: 12/16/2023. TECHNIQUE: AP, lateral, and oblique views of the right foot. FINDINGS: Possible small avulsed osseous fragment at the posterior margin of the talus is unchanged. This could correspond to a small os trigonum or an avulsion fracture. No new fractures are identified. Abnormal morphology of the fifth metatarsal head may be the result of old trauma. Joints appear relatively well-preserved. No erosions. Type II accessory navicular. Small enthesopathic spur is present at the Achilles tendon insertion on the calcaneus. XR/XR foot RT min 3V IMPRESSION: Unchanged small osseous fragment at the posterior margin of the talus, which could correspond to a small avulsion fracture or a small os trigonum. No new fractures.
== END 2023-12-28 08:33 | disposition home or self-care (01) ==
LOC: HO.HOSX 08:32
PROVIDERS: Visit Provider Physician Assistant
DX: S93.401A Sprain of unspecified ligament of right ankle, initial encounter (principal); X58.XXXA Exposure to other specified factors, initial encounter; Y93.9 Activity, unspecified; Y92.9 Unspecified place or not applicable; Y99.9 Unspecified external cause status
CPT/HCPCS: 73630; 99212

== ENCOUNTER 2024-01-29 12:55 | Outpatient (AMB) | payer MEDICAID, SELFPAY ==
--- NOTE | 2024-01-29 13:11 | A.OFFVIS_ITS ---
Vital Signs 01/29/24 13:17 Height 5 ft 10 in Weight 270 lb BMI 38.7 Intake Visit Reasons: OV- Posterior talar process, DOI 12/16/23 Intake Note: Juan a 43 year old male who presents today for a follow up of right ankle sprain, DOI 12/16/23. Patient reports he is doing well, states improvement in his pain since his last visit. He continues to attend PT. Allergies No Known Allergies [No Known Allergies*] Allergy (Verified 01/29/24 13:19) HPI HPI OV- Posterior talar process, DOI 12/16/23: Details: 43-year-old male who presents in the office today for a follow-up of a right ankle sprain. The patient was last seen in the office by me on 12/28/23 when he was placed in a tall walking boot and was encouraged to weight bear as tolerated. He was referred to PT to attend the [place] office. They were to work with him on weaning out of the boot in two to three weeks after the appointment. ? ? While in the office today, the patient reports he is doing well. He states he has noticed an improvement in his pain since his last visit. He confirms attending physical therapy. ? [facility] Medical History Venous insufficiency Moderate asthma Seasonal allergies Surgical History No history of previous surgery Family History Brother Pulmonary embolism Mother Asthma Hypertension Cancer Social History Household Members: Spouse and Children Housing: House Are you a primary healthcare administrative assistant to a significant other at home: No Do you presently have visiting nurse or other home services: No Alcohol intake: current Alcohol intake frequency: does not drink Patient Tobacco Use Status: Never used Tobacco service: No Current occupational status: unemployed Review of Systems Const All systems reviewed & are unremarkable except as noted in HPI and below Physical Exam Vital Signs: BMI result Body Mass Index 38.7 Const General: cooperative and no acute distress Orientation/consciousness: patient oriented x3 Resp Effort & Inspection: normal respiratory effort and able to speak in complete sentences Cardio Peripheral pulses: Peripheral pulses 2+ throughout Skin General skin exam: no rashes or lesions noted Neuro General: patient oriented x3 Extrem Other: Right ankle: Normal to inspection. No ecchymosis, erythema, or edema. Patient is able to demonstrate dorsiflexion, plantar flexion, pronation and supination. Negative anterior drawer. Sensation intact. Pedal Pulse intact.? ? Assessment & Plan Assessment & Plan (1) Right ankle sprain: Code(s): S93.401A - Sprain of unspecified ligament of right ankle, initial encounter Category: Medical Plan Mr. Hewitt is a 43-year-old male who presents in the office today for a follow- up of a right ankle sprain. The patient was last seen in the office by me on 12/28/23 when he was placed in a tall walking boot and was encouraged to weight bear as tolerated. He was referred to PT to attend the [place] office. They were to work with him on weaning out of the boot in two to three weeks after the appointment. ? ? While in the office today, the patient reports he is doing well. He states he has noticed an improvement in his pain since his last visit. He confirms a ttending physical therapy.? ? The patient may return to normal activities as tolerated using pain as his guide. He will continue to work with physical therapy until all sessions are completed. Follow-up will be PRN, or sooner if needed. ? Patient Instructions: Scribed by Anitha Castañeda director of medical education, for Louann Wallis PA-C on 01/29/2024 at 1:22 pm, EST.? Coding Level of Care Code Est Pt Level 3 (57942) Diagnoses Right ankle sprain S93.401A
[2024-01-29 13:17] VITALS: BMI 38.7
== END 2024-01-29 13:48 | disposition home or self-care (01) ==
LOC: HO.HOS 12:55
PROVIDERS: PCP Internal Medicine; Visit Provider Physician Assistant
DX: S93.401A Sprain of unspecified ligament of right ankle, initial encounter (principal)
CPT/HCPCS: 99212

== ENCOUNTER → 2024-01-29 12:55 | Outpatient (BNVA) | payer MEDICAID, SELFPAY | PROVIDERS: PCP Internal Medicine; Visit Provider Physician Assistant | DX: S93.491A Sprain of other ligament of right ankle, initial encounter (principal); X58.XXXA Exposure to other specified factors, initial encounter; Y93.9 Activity, unspecified; Y92.9 Unspecified place or not applicable; Y99.9 Unspecified external cause status | CPT/HCPCS: 99212 ==

== ENCOUNTER 2024-02-15 14:00 | Outpatient (RCR) | payer OTHER, MEDICAID, SELFPAY ==
--- NOTE | 2024-01-16 13:41 | MHC.PT.EP ---
[facility] [place] Office [place] Office [place] Office [address] [phone] F: [phone] F: [phone] F: [phone] F: [phone] Physical Therapy Plan of Care Date of Evaluation: 01/16/24 Date of Surgery: Diagnosis: R ankle sprain. Assessment: Patient is a 43 year old R handed male who presents with s/s consistent with R ankle sprain, ankle pain. X-rays indicate history of avulsion fracture as well at talus. 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 Patient past medical history includes DVT and DM. Current impairments include pain, swelling, balance, ROM, strength, activity tolerance and functional mobility. Functional limitations include decreased ability to stand, walk, negotiate stairs, work, and do activities around the home. Patient is motivated with good rehab potential. Skilled PT will address impairments and functional limitations in order to achieve goals. Frequency and Duration: The patient will be seen 2x/week for 5 weeks Short Term Goals: I with HEP - 2 weeks swelling absent - 3 weeks AROM WNL - 3 weeks Penitentiary Goals: Strength 4+/5 grossly - 5 weeks LEFS 60/80 - 5 weeks able to stand/walk 30 minutes without increased pain - 5 weeks Treatment Plan: Modalities to reduce pain, spasms and effusion. Manual therapy to restore motion and function. Therapeutic exercise to improve strength and flexibility. Neuromuscular re-education for posture and balance. Therapeutic activities to return to functional activities of daily living. Electronically signed by: Reyumndo Morales, PT Please sign and return to therapist. Thank you for your referral.
--- NOTE | 2024-04-11 06:50 | MHC.PT.DC ---
[facility] [place] [facility] [place] [facility] [place] [facility] [address] Sofia Hines [address] [phone] F: [phone] F: [phone] F: [phone] F: [phone] Physical Therapy Discharge Report Diagnosis: R ankle sprain. Date of Surgery: Date of Evaluation: 01/16/24 Date of Discharge: 03/03/24 Treatments to Date: 7 Cancellations to Date: No Shows to Date: Discharge Status: Achieved Goals Independent with HEP Discharge Summary: 02/15/24: I with HEP. swelling absent. Strength 4+/5 grossly. Able to stand/walk unlimited. appropriate to d/c to HEP at this time. 02/08/24: pt responding very well. min s/s with current program. continue to progress as tolerated. 02/06/24: pt progressing with strength. minor tenderness with rebounder on airex. otherwise, no s/s. 02/01/24: significantly less TTP in ATFL. improved SLS tolerance. good strength progression. 01/29; Pt has hard palpable nodules med ankle. ROM WNL. 01/22; Pt c/o tenderness with STM TFL. Pt fatigued after hip abd. Pt gastroc and HS tight. ankle ROM improving. Patient is a 43 year old R handed male who presents with s/s consistent with R ankle sprain, ankle pain. X-rays indicate history of avulsion fracture as well at talus. 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 Patient past medical history includes DVT and DM. Current impairments include pain, swelling, balance, ROM, strength, activity tolerance and functional mobility. Functional limitations include decreased ability to stand, walk, negotiate stairs, work, and do activities around the home. Patient is motivated with good rehab potential. Skilled PT will address impairments and functional limitations in order to achieve goals. Electronically signed by: Reymundo Morales, PT Please sign and return to therapist. Thank you for your referral.
== END 2024-04-11 06:50 | disposition home or self-care (01) ==
LOC: HO.PTCHIC 14:00
PROVIDERS: PCP Internal Medicine; Visit Provider Physician Assistant
DX: S93.401D Sprain of unspecified ligament of right ankle, subsequent encounter (principal)
CPT/HCPCS: 97110; 97112; 97140; 97161

== ENCOUNTER 2024-10-15 12:17 | Outpatient (REF) | payer OTHER, MEDICAID, SELFPAY ==
--- OUTSIDE RECORDS SUMMARY | 2024-10-15 13:29 | XMS_ITS | Encounter Summary ---
Author Organization [email or web address] Address [address] [facility] [address] [place] [address] Care Team Providers Care Circulation Worker Name Role Phone Hemalatha Lyons MD Primary Care Provide r Reason for Visit * Reason Onset Date Comments Error 11/16/2023 Encounter Details Date Type Department Care Team ([facility] st Contact Info) Description 11/16/2023 Telephone [facility] [address] [place], [place] [id number] Hemalatha Lyons MD [address] [place] [address] Error Social History Tobacco Use Types Packs/Day Years Used Date Smoking Tobacco: Never Passive Smoke Exposure: Never Smokeless Tobacco: Never Alcohol Use Standard Drinks/Week Comments Never 0 (1 standard drink = 0.6 oz pur e alcohol) Depression Answer Date Recorded Patient Health Questionnaire-9 Score 0 11/22/2022 Housing Stability Answer Date Recorded What is your housing situation today? I do not have housing (Staying with others, in a hotel, in a mcfp, living outside on the street, on a beach, in a car, or in a park 10/09/[address] you li ve. Do you have problems with any of the following? None of the above 10/09/2023 Food Insecurity Answer Date Recorded Within the past 12 months, y ou worried that your food would run out before you got money to buy more: Never True 04/16/2023 Within the past 12 months,th e food you bought just didn't last and you didn't have enough money to get more: Never True 11/2022 Transportation Answer Date Recorded In the past 12 months, has l ack of transportation kept you from medical appts, meetings, work or from getting things needed for daily living? No 04/16/2023 Utilities Answer Date Recorded In the past 12 months, has t he electric, gas, oil or water company threatened to shut off services in your home? No 04/16/2023 Depression Answer Date Recorded Patient Health Questionnaire-2 Score 0 11/22/2022 Sex and Gender Information Value Date Recorded Sex Assigned at Male 04/10/2022 10:35 AM EDT Legal Sex Male 10:35 AM EDT Gender Identity Male 04/10/2022 10:35 AM EDT Sexual Orientation Choose not to disclose 2021 10:35 AM EDT documented as of this encounter Plan of Treatment Upcoming Encounters Date Type Department Care Team (Late st Contact Info) Description 10/20/2024 2:45 PM EDT Office Visit [facility] [address] [place] [phone] Hemalatha Lyons MD [address] [place] [id number] documented as of this encounter Visit Diagnoses Not on filedocumented in this encounter Additional Health Concerns Assessment Noted Time PHQ-9 Depression Total Score: 0 11/23/19 23 3:39 PM EDT documented as of this encounter Care Teams Circulation Worker Relationship Specialty Start Date End Date Hemalatha Lyons MD [address] [place] [id number] PCP - General Family Medicine 02/14/19 documented as of this encounter
--- OUTSIDE RECORDS SUMMARY | 2024-10-15 13:29 | XMS_ITS | Clinical Summary ---
Author Organization [employer] Address [address] [facility] [address] [place] [address] Care Team Providers Care Senior Business Broker Name Role Phone Hemalatha Lyons MD Primary Care Provide r Allergies No known active allergies Medications acetaminophen (Tylenol) 500 MG tablet Take 2 tablets by mouth every 8 (eight) hours. 1 Active baclofen (Lioresal) 10 MG tablet Take 1 tablet by mouth in the morning and 1 tablet at noon and 1 tablet in the evening. 1 Active cholecalciferol (Vitamin D-3) 50 MCG (2000 UT) capsule Take 1 capsule by mouth at bed time. 9 Active fluticasone (Flonase Allergy Relief) 50 MCG/ACT nasal spray Administer 2 sprays into affected nostril(s) at bed time. 1 Active montelukast (Singulair) 10 MG tablet Take 1 tablet by mouth at bed time. 1 Active traMADol (Ultram) 50 MG tablet Take 1 tablet by mouth every 12 (twelve) hours. 1 Active furosemide (Lasix) 20 MG tabletIndication s:Chronic deep vein thrombosis (DVT) of right lower extremity, unspecified vein (CMS/HCC) Take 1 tablet (20 mg) by mouth in the morning for 7 days. 7 tablet 2 Active fluticasone-salm eterol (Advair) 230-21 MCG/ACT inhalerIndicatio ns:Moderate persistent asthma with acute exacerbation Inhale 2 puffs in the morning and at bedtime. Rinse mouth with water after use to reduce aftertaste and incidence of candidiasis. Do not swallow. 12 g 11 3 Active fluticasone (Flonase) 50 MCG/ACT nasal sprayIndications :Seasonal allergies Administer 1 spray into each nostril Once per day. 16 g 2 4 Active Ketotifen Fumarate 0.035 % solutionIndicati ons:Seasonal allergies Administer 1 drop into affected eye(s) every 12 (twelve) hours if needed (use only of needed). 10 mL 4 Active metFORMIN (Glucophage) 500 MG tabletIndication s:Newly diagnosed diabetes ([facility]) Take 1 tablet (500 mg) by mouth with breakfast and with evening meal. 60 tablet 11 4 025 Active FREESTYLE LITE test stripIndications :Newly diagnosed diabetes ([facility]) Use to test blood sugar 2 times daily 100 each 12 4 025 Active Lancets miscIndications: Newly diagnosed diabetes ([facility]) Use to test blood sugar 2 times daily 100 each 2 4 Active Alcohol Swabs 70 % padsIndications: Newly diagnosed diabetes ([facility]) Use to test blood sugar 2 times daily 100 each 2 4 Active Blood Glucose Monitoring Suppl (FreeStyle [place] Lite) w/Device kitIndications:N ewly diagnosed diabetes ([facility]) Use to test blood sugar 2 times daily 1 kit 4 Active Diclofenac Sodium 1 % gelIndications:S prain of lateral collateral ligament of right knee, initial encounter Apply topically to affected areas twice daily 150 g 1 4 Active cetirizine (ZyrTEC) 10 MG tabletIndication s:Seasonal allergies TAKE 1 TABLET BY MOUTH EVERY DAY 90 tablet 1 4 Active ketoconazole (NIZOral) 2 % shampooIndicatio ns:Seborrheic dermatitis Apply topically 2 (two) times a week. 120 mL 1 4 Active Blood Pressure kit 1 each 2 times daily. 1 kit 4 025 Active amLODIPine (Norvasc) 10 MG tabletIndication s:Essential hypertension TAKE 1 TABLET BY MOUTH EVERY DAY IN THE MORNING 90 tablet 1 5 Active apixaban (Eliquis) 5 MG tabletIndication s:Pulmonary embolism on right (CMS/HCC) TAKE 1 TABLET BY MOUTH TWICE DAILY 60 tablet 5 Active Dulaglutide (Trulicity) 0.75 MG/0.5ML solution auto-injectorInd ications:Type 2 diabetes mellitus with hyperglycemia, without long-term current use of insulin ([facility]) Inject 0.75 mg under the skin 1 (one) time per week. 2 mL 2 5 Active empagliflozin (Jardiance) 25 MGIndications:Ty pe 2 diabetes mellitus with hyperglycemia, without long-term current use of insulin (CMS/[facility]) Take 1 tablet (25 mg) by mouth Once per day. 90 tablet 1 5 026 Active albuterol (Ventolin HFA) 108 (90 Base) MCG/ACT inhalerIndicatio ns:Moderate persistent asthma without complication Inhale 2 puffs by mouth every 4 to 6 hours as needed 18 g 1 5 Active albuterol (2.5 MG/3ML) 0.083% nebulizer solutionIndicati ons:Moderate persistent asthma without complication Take 3 mL (2.5 mg) by nebulization every 8 (eight) hours if needed for wheezing. 75 mL 1 5 Active Active Problems Problem Noted Date Diagnosed Date Type 2 diabetes mellitus wit h hyperglycemia, without long-term current use of insulin 01/17/2024 Assessment & Plan (09/03/2024 2:12 PM EDT): Diabetes is: not controlled - Lab Results Component Value Date HGBA1C 11.4 (A) 09/03/2024 HGBA1C 8.0 (A) 01/17/2024 HGBA1C 7.9 (A) 10/17/2023 - Lab Results Component Value Date CREATININE 1.03 07/17/2023 -Changes: Extensive counseling about diabetic diet done today, I will increase his Jardiance to 25 mg daily and I will start him on Trulicity 0.75 mg every week I advised to log his glucose and bring log for next appointment - Diabetic eye exam: Up-to-date - Diabetic foot exam: Referral done - Follow up: 3 months Assessment & Plan (01/17/2024 3:00 PM EDT): Diabetes is: not controlled - Lab Results Component Value Date HGBA1C 8.0 (A) 01/17/2024 HGBA1C 7.9 (A) 10/17/2023 HGBA1C 7.3 (H) 10/13/2022 - Lab Results Component Value Date CREATININE 1.03 07/17/2023 -Changes: I added jardicance 10mg daily - Diabetic eye exam:referral done today - Diabetic foot exam:referral done today - Continue lifestyle modifications - Continue current medications - Follow up: 3 months Seborrheic dermatitis 01/17/2024 Encounter for preventive health examination 01/2024 Newly diagnosed diabetes 10/17/2023 Assessment & Plan (10/17/2023 11:07 AM EDT): Counseling done today I prescribed his supplies and metformin RTC 3 months with glucose log Urinary frequency 12/14/2022 Assessment & Plan (12/14/2022 11:40 AM EDT): Drink plenty of water do not hold urine UA Empiric treatment Encounter for preventative adult health care exa mination 10/13/2022 Assessment & Plan (10/17/2023 10:22 AM EDT): See HPI Chronic deep vein thrombosis (DVT) 10/13/2022 Assessment & Plan (10/13/2022 3:05 PM EDT): Continue with elequis BID Moderate persistent asthma with acute exacerbati on 10/13/2022 Assessment & Plan (10/13/2022 3:06 PM EDT): C/w albuterol PRN I prescribed to day prednisone Once he feels better I instructed to start adavir BID Elevated blood pressure reading 10/10/2022 Pulmonary embolism 06/15/2022 Seasonal allergies 06/15/2022 Severe obesity 06/15/2022 Snoring 06/15/2022 Vascular insufficiency 06/15/2022 Assessment & Plan (09/03/2024 2:13 PM EDT): Advised to continue use of compression stockings and elevation of legs Extensive counseling about weight reduction also done today Continue to follow-up with vascular Essential hypertension 06/15/2022 Assessment & Plan (09/03/2024 2:11 PM EDT): Blood pressure today is slightly elevated, he admits he forgot to take his medication today before coming to his appointment I advised low-sodium diet and to take his medication every day without missing any dose I instructed patient to monitor blood pressure at home and report back to me if blood pressures persistently higher than 140/90 Assessment & Plan (01/17/2024 2:59 PM EDT): - Aerobic exercise to reduce BP. Initial goal of 30 min walk 3-5x/week. Increase as tolerated. - low-sodium diet (goal: <2g/day) and heart healthy diet such as DASH to reduce BP and prevent ASCVD. - Home BP monitoring 1-2 x day with goal of <140/90. - Seek immediate medical attention for chest pain, palpitations, SOB, syncope, or sudden changes in mental status. - Do not change or discontinue current prescriptions without first consulting health care provider Assessment & Plan (06/05/2023 3:53 PM EST): - Aerobic exercise to reduce BP. Initial goal of 30 min walk 3-5x/week. Increase as tolerated. - low-sodium diet (goal: <2g/day) and heart healthy diet such as DASH to reduce BP and prevent ASCVD. - Home BP monitoring 1-2 x day with goal of <140/90. - Seek immediate medical attention for chest pain, palpitations, SOB, syncope, or sudden changes in mental status. - Do not change or discontinue current prescriptions without first consulting health care provider Assessment & Plan (12/14/2022 11:41 AM EDT): - Aerobic exercise to reduce BP. Initial goal of 30 min walk 3-5x/week. Increase as tolerated. - low-sodium diet (goal: <2g/day) and heart healthy diet such as DASH to reduce BP and prevent ASCVD. - Home BP monitoring 1-2 x day with goal of <140/90. - Seek immediate medical attention for chest pain, palpitations, SOB, syncope, or sudden changes in mental status. - Do not change or discontinue current prescriptions without first consulting health care provider Assessment & Plan (10/13/2022 3:05 PM EDT): Maintenance: BMP: ordered today Lipid Panel: ordered today - Aerobic exercise to reduce BP. Initial goal of 30 min walk 3-5x/week. Increase as tolerated. - low-sodium diet (goal: <2g/day) and heart healthy diet such as DASH to reduce BP and prevent ASCVD. - Home BP monitoring 1-2 x day with goal of <140/90. - Seek immediate medical attention for chest pain, palpitations, SOB, syncope, or sudden changes in mental status. -I increase today his amlodipine to 10mg daily - Do not change or discontinue current prescriptions without first consulting health care provider Dyspnea on exertion 06/15/2022 Overview (06/15/2022): Seen by cardiology at [facility] on 05/30/22. Echocardiogram on 02/16/2022 showing EF 60- 65%, normal study. HLD (hyperlipidemia) 06/15/2022 Impaired glucose tolerance 06/15/2022 Metabolic syndrome 06/15/2022 Moderate persistent asthma 06/15/2022 Assessment & Plan (09/03/2024 2:10 PM EDT): Patient educated to avoid triggers I will refill his albuterol inhaler and albuterol solution Assessment & Plan (01/17/2024 2:59 PM EDT): Controlled c/w current interventions Assessment & Plan (06/05/2023 3:52 PM EST): controlled c/w same interventions Obstructive sleep apnea 06/15/2022 Assessment & Plan (06/05/2023 3:52 PM EST): Continue to use CPAP every night F/u with sleep medicine Assessment & Plan (10/13/2022 3:06 PM EDT): Patient is waiting for a different mask I decided to refer patient to sleep medicine to follow up closely his case Encounters Date Type Department Care Team Description 10/14/2024 Patient Outreach [facility]S [address] [place] [address] Hemalatha Lyons MD Pre-visit Planning (SDOH was already completed) 09/03/2024 10:30 AM EDT Office Visit [facility] [address] [place] [address] Hemalatha Lyons MD Essential hypertension (Primary Dx); Type 2 diabetes mellitus with hyperglycemia, without long-term current use of insulin (CMS/HCC); Moderate persistent asthma without complication; Vascular insufficiency 09/03/2024 Travel 08/27/2024 Travel 08/25/2024 Patient Outreach [facility] [address] [place] [address] Hemalatha Lyons MD Pre-visit Planning (SDOH screening negative and tobacco screening negative) 08/22/[address] [facility] () Department [address] [place] [phone] Provider, Population Health Generic 07/30/2024 Telephone [facility] [address] [place] [address] Hemalatha Lyons MD (May Recall from Last 3 Months Immunizations Name Administration Dates Next Due Pneumococcal Conjugate PCV 20 01/17/2024 Tdap 03/30/2016 Social History Tobacco Use Types Packs/Day Years Used Date Smoking Tobacco: Never Passive Smoke Exposure: Never Smokeless Tobacco: Never Tobacco Cessation:Counseling Given: Not Answered Alcohol Use Standard Drinks/Week Comments Never 0 (1 standard drink = 0.6 oz pur e alcohol) Depression Answer Date Recorded Patient Health Questionnaire-9 Score 0 11/22/2022 Housing Stability Answer Date Recorded What is your housing situation today? I have ana jones 08/25/[address] you li ve. Do you have problems with any of the following? None of the above 08/25/2024 Food Insecurity Answer Date Recorded Within the [...] Recorded Patient Health Questionnaire-2 Score 0 11/22/2022 Internet Access Answer Date Recorded Internet Access Q1 Yes 08/25/2024 Internet Access Q2 Not on file 08/25/2024 Sex and Gender Information Value Date Recorded Sex Assigned at Male 04/10/2022 10:35 AM EDT Legal Sex Male 10:35 AM EDT Gender Identity Male 04/10/2022 10:35 AM EDT Sexual Orientation Choose not to disclose 2021 10:35 AM EDT Last Filed Vital Signs Vital Sign Reading Time Taken Comments Blood Pressure 146/98 09/03/2024 10:29 AM EDT n meds Pulse 92 09/03/2024 10:29 AM EDT Temperature 36.4 ??C (97.6 ??F) 09/03/2024 10:29 AM E DT Respiratory Rate 20 09/03/2024 10:29 AM EDT Oxygen Saturation 95% 05/28/2024 11:18 AM EST Inhaled Oxygen Concentration - - Weight 123 kg (272 lb 3.2 oz) 09/03/2024 10:29 A M EDT Height 180.3 cm (5' 11 ) 09/03/2024 10:29 AM EDT Body Mass Index 37.96 09/03/2024 10:29 AM EDT Plan of Treatment Upcoming Encounters Date Type Department Care Team (Late st Contact Info) Description 10/20/2024 2:45 PM EDT Office Visit [facility] [address] [place] [address] Hemalatha Lyons MD [address] [place] [address] Health Maintenance Due Date Last Done Comments HIV Screening 1982 Diabetes: Foot Exam 1992 Alcohol/Substance Use Screening 1994 Family Planning (PISQ) 1997 Hepatitis C Screening 2000 Diabetes: Urine Protein Screening 2001 Hepatitis B Vaccines (1 of 3 - 19+ 3-dose series) 2001 Depression Screening 11/23/2023 11/22/2022, 11/23/19 23 COVID-19 Vaccine ( season) 2024 Influenza Vaccine (#1) 2024 Lipid Panel 07/17/2024 07/17/2023 Diabetes: Hemoglobin A1C 12/04/2024 025, 01/17/2024, 10/17/2023, Additional history exists SDOH Screening 08/25/2025 08/25/2024 Tobacco Screening 09/03/2025 09/03/2024 Eye Exam 02/21/2026 02/22/2024, 02/09, 02/22/2024, Additional history exists DTaP/Tdap/Td Vaccines (2 - Td or Tdap) 03/30/2026 03/30/2016 Zoster Vaccines (1 of 2) 2032 RSV Patients and Patients Aged 60 years or older (1 - 1-dose 75+ series) 2057 Pneumococcal Vaccine: Pediatrics (0 to 5 Years) and At-Risk Patients (6 to 49) Years) Completed 01/17/2024 HIB Vaccines Aged Out No longer eligi ble based on patient's age to complete this topic HPV Vaccines Aged Out No longer eligi ble based on patient's age to complete this topic Hepatitis A Vaccines Aged Out No long er eligible based on patient's age to complete this topic IPV Vaccines Aged Out No longer eligi ble based on patient's age to complete this topic Meningococcal Vaccine Aged Out No jennifer krissy eligible based on patient's age to complete this topic RSV under 20 months Aged Out No longe r eligible based on patient's age to complete this topic Rotavirus Vaccines Aged Out No longer eligible based on patient's age to complete this topic Procedures Procedure Name Priority Date/Time Associated Diagnosis Comments POCT GLUCOSE Routine 09/03/2024 10:31 AM EDT Type 2 diabetes mellitus with hyperglycemia, without long-term current use of insulin ([facility]) POCT GLYCATED HEMOGLOBIN, TOTAL Routine 09/03/2024 10:31 AM EDT Type 2 diabetes mellitus with hyperglycemia, without long-term current use of insulin ([facility]) LIPID PANEL, STANDARD Routine 07/17/2023 1:24 PM EST Essential hypertension from Last 3 Months or Most Recently Relevant to Health Maintenance Results * (ABNORMAL) POCT HGB A1C (09/03/2024 10:31 AM EDT) Hemoglobin A1C 11.4(A) 4.0 - 6.0 % QC Media Lot # [id number] Lot# Expiration Date , Blood 09/03/2024 10:3 1 AM EDT Hemalatha Sanchez MD POINT OF CARE TEST EN TER/EDIT ORDERABLES Final Result * (ABNORMAL) POCT Glucose (09/03/2024 10:31 AM EDT) Glucose Blood, POC 284(A) 60 - 200 mg/dL QC Media Lot # [id number] Lot# Expiration Date Blood Capillary blood specimen / Unknown 09/03/2024 10:31 AM EDT Hemalatha Sanchez MD POINT OF CARE TEST EN TER/EDIT ORDERABLES Final Result * (ABNORMAL) Lipid Panel, Standard (07/17/2023 1:24 PM EST) Triglycerides 287(H) <150 mg/dL [facility] Comment:Desirable Triglyceri de: less than 150 mg/dLBorderline High Triglyceride 150-199 mg/dLHigh Triglyceride: 200-499 mg/dLVery High Triglyceride: greater than or equal to 5OO mg/dL Cholesterol 230(H) <200 mg/dL [facility] Comment:Desirable Cholestero l: less than 200 mg/dLBorderline High Cholesterol: 200-239 mg/dLHigh Cholesterol: greater than 239 mg/dL LDL Cholesterol Calculated 136(H) <100 mg/dL [facility] Comment:Desirable LDL: less than 100 mg/dLNear Optimal/Above Optimal LDL: 110- 129 mg/dLBorderline High LDL: 130-159 mg/dLHigh LDL: 160-189 mg/dLVery High LDL: greater than or equal to 190 mg/dL HDL Cholesterol 37(L) >40 mg/dL [facility] Comment:Desirable HDL: great er than 40 mg/dL Note: This HDL assay may give artificially low results in patients with liver disease. Blood Venous blood specimen / Unknown 07/17/2023 1:24 PM EST 07/17/2023 4:09 PM EST us Hemalatha Sanchez MD LAB BLOOD ORDERABLES Final Result Performing Organization Address City/State/[facility] Co de Phone Number LABS [address] [place] [phone] from Last 3 Months or Most Recently Relevant to Health Maintenance Insurance [facility] C[facility] Care Teams Senior Business Broker Relationship Specialty Start Date End Date Hemalatha Lyons MD [address] [place] [id number] PCP - General Family Medicine 02/14/19
--- OUTSIDE RECORDS SUMMARY | 2024-10-15 13:29 | XMS_ITS | Encounter Summary ---
Author Organization [employer] Address [address] [place] [address] Care Team Providers Care Collision Repairer Name Role Phone Hemalatha Lyons MD Primary Care Provide r Reason for Visit * Reason Comments Pre-visit Planning SDOH was already com pleted Encounter Details Date Type Department Care Team ([facility] st Contact Info) Description 10/14/2024 Patient Outreach [facility] MED & PEDS [address] [place], [place] [phone] Hemalatha Lyons MD [address] [place] [address] Pre-visit Planning (SDOH was already completed) Social History Tobacco Use Types Packs/Day Years [...] AM EDT documented as of this encounter Progress Notes * Cassandra Corona - 10/14/2024 1:55 PM EDT CC Cassandra Guzman placed successful outbound call to patient for pre-visit planning. Patient name and confirmed. Patient confirms appt date and time, and has transportation arrangements. Biggest concern for appointment at this time is no concerns. Appropriate screenings completed in anticipation ofappointment. documented in this encounter Plan of Treatment Upcoming Encounters Date Type Department Care Team (Late st Contact Info) Description 10/20/2024 2:45 PM EDT Office Visit [facility] [address] [place] [address] Hemalatha Lyons MD [address] [place] [address] documented as of this encounter Visit Diagnoses Not on filedocumented in this encounter Additional Health Concerns Assessment Noted Time PHQ-9 Depression Total Score: 0 11/23/19 23 3:39 PM EDT documented as of this encounter Care Teams Collision Repairer Relationship Specialty Start Date End Date Hemalatha Lyons MD [address] [place], [place] [phone] PCP - General Family Medicine 02/14/19 documented as of this encounter
--- OUTSIDE RECORDS SUMMARY | 2024-10-15 13:29 | XMS_ITS | Encounter Summary ---
Author Organization [employer] Address [address] [place] [address] Care Team Providers Care Hydrotreater Operator Name Role Phone Hemalatha Lyons MD Primary Care Provide r Reason for Visit * Reason Comments Med Refill Encounter Details Date Type Department Care Team (Late Contact Info) Description 12/30/2022 Refill [facility] PEDS [address] [place], [place] [phone] Mela Wilburn MD [address] [place] [phone] Essential hypertension Social History Tobacco Use Types Packs/Day Years Used Date Smoking Tobacco: Never Passive Smoke Exposure: Never Smokeless Tobacco: Never Alcohol Use Standard Drinks/Week Comments Never 0 (1 standard drink = 0.6 oz pur e alcohol) Depression Answer Date Recorded Patient Health Questionnaire-9 Score 0 11/22/2022 Depression Answer Date Recorded Patient Health Questionnaire-2 Score 0 11/22/2022 Sex and Gender Information Value Date Recorded Sex Assigned at Male 04/10/2022 10:35 AM EDT Legal Sex Male 10:35 AM EDT Gender Identity Male 04/10/2022 10:35 AM EDT Sexual Orientation Choose not to disclose 2021 10:35 AM EDT documented as of this encounter Plan of Treatment Upcoming Encounters Date Type Department Care Team ([facility] Contact Info) Description 10/20/2024 2:45 PM EDT Office Visit [facility] MED[facility] [address] [place], [place] [phone] Hemalatha Lyons MD [address] [place] [address] documented as of this encounter Visit Diagnoses Diagnosis Essential hypertension Unspecified essential hypertension documented in this encounter Additional Health Concerns Assessment Noted Time PHQ-9 Depression Total Score: 0 11/23/19 23 3:39 PM EDT documented as of this encounter Care Teams Hydrotreater Operator Relationship Specialty Start Date End Date Hemalatha Lyons MD [address] [place] [phone] PCP - General Family Medicine 02/14/19 documented as of this encounter
--- OUTSIDE RECORDS SUMMARY | 2024-10-15 13:29 | XMS_ITS | Encounter Summary ---
Author Organization [employer] Address [address] [facility] [address] [place] [address] Care Team Providers Care Rehab Assistant Name Role Phone Hemalatha Lyons MD Primary Care Provide r Encounter Details Date Type Department Care Team (Late st Contact Info) Description 11/16/2023 Orders Only [facility] MEDICINE [address] [place], [place] [phone] [facility] [address] [place] [address] Social History Tobacco Use Types Packs/Day Years [...] with others, in a hotel, in a skilled nursing, living outside on the street, on a [...] Description 10/20/2024 2:45 PM EDT Office Visit [facility] MEDICINE [address] [place] [address] Hemalatha Lyons MD [address] [place] [address] documented as of this encounter Procedures Procedure Name Priority Date/Time Associated Diagnosis Comments XR FOOT 3+ VIEWS RIGHT Routine 12/16/2023 10:40 PM EDT XR ANKLE 3+ VIEWS RIGHT Routine 12/16/2023 10:40 PM EDT documented in this encounter Results * XR Ankle 3+ Views Right (12/16/2023 10:40 PM EDT) Anatomical Region Laterality Modality Lower Extremities, Ankle Right Radiogr aphic Imaging 12/16/2023 10:4 0 PM EDT Narrative 12/16/2023 11:05 PM EDT ? [facility] ?[address] ?[place] [address] ?XRay Report ? Signed ? Patient: Schmidt,Juan R ?MR#: [id number] ?? 42 ? : 1980 ?Acct:[id number] ? Age/Sex: 43 / M ?ADM Date: 07/07/24 ? Loc: HO.ED ? Attending Dr: ? Ordering Physician: Ciaran Cortes MD ?? Date of Service: 12/16/23 ?? Procedure(s): XR ankle RT min 3V ?? Accession Number(s): [id number] ? cc: Hemalatha Lyons MD; Ciaran Cortes MD ? EXAMINATION: ?? RIGHT ANKLE, RIGHT FOOT ? CLINICAL INFORMATION: ?? Right ankle and foot injury ? COMPARISON: ?? None available. ? TECHNIQUE: ?? 2 views right ankle, 3 views right foot ? FINDINGS: ?? Soft tissue swelling is present bilaterally, more marked medially. The ?? ankle mortise appears stable. There is an avulsion fracture of the ?? posterior talar process associated with the posterior talofibular ?? ligament. No other fractures are seen. ? XR/XR ankle RT min 3V ?? IMPRESSION: ?? Avulsion fracture posterior talar process. ? Dictated By: ?Eleazar Shane MD ? Signed By: ?<Electronically signed by Eleazar Shane MD in OV> ? 12/16/23 2301 ? DD/ 2240 ? TD/TT: ? Professor Of Oceanography: SS ? Procedure Note Michael, Lanny - 12/16/[address] [address] XRay Report Signed Patient: Juan Schmidt RMR#: [id number] 42 : 1980Acct:[id number] Age/Sex: 43 / MADM Date: 12/16/23 Loc: HO.ED Attending Dr: Ordering Physician: Ciaran Cortes MD Date of Service: 12/16/23 Procedure(s): XR ankle RT min 3V Accession Number(s): [id number] cc: Hemalatha Lyons MD; Ciaran Cortes MD EXAMINATION: RIGHT ANKLE, RIGHT FOOT CLINICAL INFORMATION: Right ankle and foot injury COMPARISON: None available. TECHNIQUE: 2 views right ankle, 3 views right foot FINDINGS: Soft tissue swelling is present bilaterally, more marked medially. The ankle mortise appears stable. There is an avulsion fracture of the posterior talar process associated with the posterior talofibular ligament. No other fractures are seen. XR/XR ankle RT min 3V IMPRESSION: Avulsion fracture posterior talar process. Dictated By: Eleazar Shane MD Signed By: <Electronically signed by Eleazar Shane MD in OV> 12/16/23 2301 DD/ 2240 TD/TT: Professor Of Oceanography: RABIA [facility] External Provider IMG XR PROCEDURES Final Result * XR Foot 3+ Views Right (12/16/2023 10:40 PM EDT) Anatomical Region Laterality Modality Lower Extremities, Foot Right Radiogra phic Imaging 12/16/2023 10:4 0 PM EDT Narrative 12/16/2023 11:05 PM EDT ? [facility] ?[address] ?[place] [address] ?XRay Report ? Signed ? Patient: Juan Schmidt ?MR#: [id number] ?? 42 ? : 1980 ?Acct:[id number] ? Age/Sex: 43 / M ?ADM Date: 12/16/23 ? Loc: HO.ED ? Attending Dr: ? Ordering Physician: Ciaran Cortes MD ?? Date of Service: 12/16/23 ?? Procedure(s): XR foot RT min 3V ?? Accession Number(s): [id number] ? cc: Hemalatha Lyons MD; Ciaran Cortes MD ? EXAMINATION: ?? RIGHT ANKLE, RIGHT FOOT ? CLINICAL INFORMATION: ?? Right ankle and foot injury ? COMPARISON: ?? None available. ? TECHNIQUE: ?? 2 views right ankle, 3 views right foot ? FINDINGS: ?? Soft tissue swelling is present bilaterally, more marked medially. The ?? ankle mortise appears stable. There is an avulsion fracture of the ?? posterior talar process associated with the posterior talofibular ?? ligament. No other fractures are seen. ? XR/XR foot RT min 3V ?? IMPRESSION: ?? Avulsion fracture posterior talar process. ? Dictated By: ?Eleazar Shane MD ? Signed By: ?<Electronically signed by Eleazar Shane MD in OV> ? 12/16/23 2301 ? DD/ 2240 ? TD/TT: ? Professor Of Oceanography: SS ? Procedure Note Donotileanainterpreter, Image - 12/16/2023 [facility] [address] [place] [address] XRay Report Signed Patient: Juan Schmidt RMR#: [id number] 42 : 1980Acct:[id number] Age/Sex: 43 / MADM Date: 12/16/23 Loc: HO.ED Attending Dr: Ordering Physician: Ciaran Cortes MD Date of Service: 12/16/23 Procedure(s): XR foot RT min 3V Accession Number(s): [id number] cc: Hemalatha Lyons MD; Ciaran Cortes MD EXAMINATION: RIGHT ANKLE, RIGHT FOOT CLINICAL INFORMATION: Right ankle and foot injury COMPARISON: None available. TECHNIQUE: 2 views right ankle, 3 views right foot FINDINGS: Soft tissue swelling is present bilaterally, more marked medially. The ankle mortise appears stable. There is an avulsion fracture of the posterior talar process associated with the posterior talofibular ligament. No other fractures are seen. XR/XR foot RT min 3V IMPRESSION: Avulsion fracture posterior talar process. Dictated By: Eleazar Shane MD Signed By: <Electronically signed by Eleazar Shane MD in OV> 12/16/23 2301 DD/ 2240 TD/TT: Professor Of Oceanography: SS [facility] External Provider IMG XR PROCEDURES Final Result documented in this encounter Visit Diagnoses Not on filedocumented in this encounter Additional Health Concerns Assessment Noted Time PHQ-9 Depression Total Score: 0 11/23/19 23 3:39 PM EDT documented as of this encounter Care Teams Rehab Assistant Relationship Specialty Start Date End Date Hemalatha Lyons MD [address] [place] [address] PCP - General Family Medicine 02/14/19 documented as of this encounter
[2024-10-15 14:13] LABS: Alanine Aminotransferase 34 U/L (0-40); Albumin Level 4.6 g/dL (3.5-5.0); Alkaline Phosphatase 52 U/L (39-117); Anion Gap 13 (12-20); Aspartate Amino Transferase 23 U/L (5-37); Bilirubin Total 0.6 mg/dL (0.0-1.0); Blood Urea Nitrogen 12 mg/dL (9-16); Calcium 9.8 mg/dL (8.4-10.2); Carbon Dioxide 26 mmol/L (22-29); Chloride 105 mmol/L (96-108); Cholesterol 208 mg/dL (<200); Estimated Glomerular Filt Rate > 60; Glucose Random 109 mg/dL (60-115); HDL Cholesterol 34 mg/dL (>40); LDL Cholesterol Calculated 120 mg/dL (<100); Potassium 4.1 mmol/L (3.3-5.1); Sodium 140 mmol/L (135-145); Total Protein 7.6 g/dL (6.5-8.0); Triglycerides 273 mg/dL (<150)
[2024-10-15 14:16] LABS: Creatinine Urine 165.82 mg/dL; Microalbum/Creatinine Ratio Ur 4.2 ug/mg cr (<30)
== END 2024-10-15 12:18 | disposition home or self-care (01) ==
LOC: HO.HHCL 12:17
PROVIDERS: Visit Provider Internal Medicine
DX: E11.65 Type 2 diabetes mellitus with hyperglycemia (principal)
CPT/HCPCS: 36415; 80053; 80061; 82043; 82570